=== PATIENT | male | born 1975 | race Caucasian/White ===

== ENCOUNTER 2022-08-09 10:57 | Emergency (ER) | payer OTHER ==
[2022-08-09 11:22] VITALS: BP 149/94; PULSE 93; RESP 18; TEMP 98.5; BMI 19.0
[2022-08-09] MEDS ORDERED: ALBUTEROL SO4 2.5/IPRATROPIUM 0.5 INH SOL 3 ML VIAL.NEB. NEB ONE (12:08)
== END 2022-08-09 14:45 | disposition home or self-care (01) ==
LOC: JER 10:57
PROC: 3E0F7GC Introduction of Other Therapeutic Substance into Respiratory Tract, Via Natural or Artificial Opening (ICD-10-PCS; principal; 2022-08-09)
DX: R05.1 Acute cough (principal)
CPT/HCPCS: 0241U-QW; 71046-TC-FY; 87651; 99284-25

== ENCOUNTER 2023-05-21 19:33 | Observation (INO) | payer OTHER ==
[2023-05-21 19:39] VITALS: BMI 18.6
[2023-05-21] MEDS ORDERED: DIPHTH,PERTUSS(ACELL),TET 0.5 ML DISP.SYRIN IM ONE ×2 (20:02→21:18)
[2023-05-21] MEDS ORDERED: ACETAMINOPHEN 1000 MG/100 ML BAG IVPB ONE (21:34)
[2023-05-21 21:42] LABS: POTASSIUM 3.4 mmol/L (3.5-5.1)
[2023-05-21] MEDS ORDERED: POTASSIUM CHLORIDE ORAL LIQUID 20 MEQ/15 ML PO ONE (21:42)
[2023-05-21 21:44] LABS: CALCIUM 8.5 mg/dL (8.5-10.1)
[2023-05-21 21:45] LABS: ALBUMIN 3.6 g/dl (3.4-5.0); BLOOD UREA NITROGEN 15.9 mg/dL (7-18)
[2023-05-21] MEDS ORDERED: BACITRACIN ZINC 15 GM TUBE TOPICAL OINTMENT TP ONE (21:46)
[2023-05-21 21:49] LABS: TOT PROT 6.6 g/dl (6.4-8.2)
[2023-05-21] MEDS ORDERED: ACETAMINOPHEN INJECTION 100 ML IVPB ONE (21:50)
[2023-05-21] MEDS ORDERED: POTASSIUM CHLORIDE ORAL LIQUID 20 MEQ/15 ML ONE (21:50)
[2023-05-21] MEDS ORDERED: BACITRACIN 0.9 GM PACKET ONE (21:50)
[2023-05-21 22:05] LABS: BASO % 1.2 % (0-2.0); EOS % 2.3 % (0-4.5); HEMATOCRIT 43.5 % (35.4-49); HEMOGLOBIN 15.5 GM/dL (11.7-16.9); LYMPH % 22.3 % (8-40); MCH 32.8 pg (25.7-33.7); MCHC 35.6 g/dl (32.0-35.9); MEAN CELL VOLUME 92.2 fl (80-96); MEAN PLT VOLUME 9.9 fl (7.5-11.1); MONO % 9.4 % (3.8-10.2); NEUT % 64.8 % (42.8-82.8); PLATELET COUNT 160 10^3/uL (134-434); RBC 4.71 M/mm3 (4.00-5.60); RDW 12.7 % (11.9-15.9); WHITE BLOOD COUNT 7.3 K/mm3 (4.0-10.0)
[2023-05-21] MEDS ORDERED: ACETAMINOPHEN 325 MG TABLET (FP) PO PRN (23:26)
[2023-05-21 23:52] LABS: MAGNESIUM 2.1 mg/dL (1.8-2.4)
[2023-05-21 23:56] LABS: PHOSPHOROUS 4.1 mg/dL (2.5-4.9)
[2023-05-22 00:33] LABS: PHENCYCLIDINE,URINE NEGATIVE (NEGATIVE); URINE BARBITURATES NEGATIVE (NEGATIVE)
[2023-05-22 00:35] LABS: URINE APPEARANCE Clear; URINE BILIRUBIN Negative (NEGATIVE); URINE COLOR Yellow; URINE GLUCOSE (UA) Negative (NEGATIVE); URINE KETONE Trace (NEGATIVE); URINE LEUK ESTERASE Negative (NEGATIVE); URINE NITRITE Negative (NEGATIVE); URINE PROTEIN 1+ (NEGATIVE)
[2023-05-22 00:43] LABS: COCAINE, UR NEGATIVE (NEGATIVE); METHADONE, UR NEGATIVE (NEGATIVE); OPIATES, URI NEGATIVE (NEGATIVE); URINE AMPHETAMINES NEGATIVE (NEGATIVE); URINE BENZODIAZEPINES NEGATIVE (NEGATIVE)
[2023-05-22 01:45] LABS: EPI CELLS 15.6 /uL (0-25.1); HYALINE CASTS 1.6 /uL (0-3.1); URINE BACTERIA 8.3 /uL (0-1359); URINE RBC 9.6 /uL (0-23.9); URINE WBC 40.1 /uL (0-25.8)
[2023-05-22 06:02] LABS: HEMATOCRIT 44.8 % (35.4-49); HEMOGLOBIN 15.5 GM/dL (11.7-16.9); MCH 32.1 pg (25.7-33.7); MCHC 34.6 g/dl (32.0-35.9); MEAN CELL VOLUME 92.8 fl (80-96); PLATELET COUNT 164 10^3/uL (134-434); RBC 4.83 M/mm3 (4.00-5.60); RDW 12.4 % (11.9-15.9); WHITE BLOOD COUNT 8.1 K/mm3 (4.0-10.0)
[2023-05-22 06:24] LABS: POTASSIUM 4.6 mmol/L (3.5-5.1)
[2023-05-22 06:26] LABS: MAGNESIUM 1.9 mg/dL (1.8-2.4)
[2023-05-22 06:27] LABS: ALBUMIN 3.6 g/dl (3.4-5.0); BLOOD UREA NITROGEN 14.7 mg/dL (7-18); CALCIUM 8.3 mg/dL (8.5-10.1)
[2023-05-22 06:30] LABS: CREATININE 0.8 mg/dL (0.55-1.3); PHOSPHOROUS 3.7 mg/dL (2.5-4.9)
[2023-05-22 06:31] LABS: TOT PROT 6.5 g/dl (6.4-8.2)
[2023-05-22 06:32] LABS: BILIRUBIN,TOTAL 1.8 mg/dL (0.2-1)
[2023-05-22] MEDS ORDERED: ENOXAPARIN NA (PORCINE) 40 MG/0.4 ML DISP.SYRIN SQ ONE (09:14)
[2023-05-22] MEDS: ENOXAPARIN NA (PORCINE) 40 MG/0.4 ML DISP.SYRIN SQ SCH (10:00)
[2023-05-22] MEDS ORDERED: ACETAMINOPHEN 325 MG TABLET (FP) ONE (10:01)
[2023-05-23 10:05] VITALS: PULSE 71
[2023-05-23] MEDS: ENOXAPARIN NA (PORCINE) 40 MG/0.4 ML DISP.SYRIN SQ SCH (10:26)
[2023-05-23 14:09] VITALS: BP 117/67; RESP 18; TEMP 97.8
== END 2023-05-23 16:10 | disposition home or self-care (01) ==
LOC: JER 19:33 → JERBED 23:07 → J4S 05-22 17:55
PROVIDERS: ADMIT Internal Medicine; ATTEND Internal Medicine
PROC: 3E033NZ Introduction of Analgesics, Hypnotics, Sedatives into Peripheral Vein, Percutaneous Approach (ICD-10-PCS; principal; 2023-05-21)
PROC: 3E0234Z Introduction of Serum, Toxoid and Vaccine into Muscle, Percutaneous Approach (ICD-10-PCS; 2023-05-21)
PROC: 3E023GC Introduction of Other Therapeutic Substance into Muscle, Percutaneous Approach (ICD-10-PCS; 2023-05-21)
PROC: 3E033NZ Introduction of Analgesics, Hypnotics, Sedatives into Peripheral Vein, Percutaneous Approach (ICD-10-PCS; 2023-05-21)
PROC: 3E0234Z Introduction of Serum, Toxoid and Vaccine into Muscle, Percutaneous Approach (ICD-10-PCS; 2023-05-21)
PROC: 3E023GC Introduction of Other Therapeutic Substance into Muscle, Percutaneous Approach (ICD-10-PCS; 2023-05-21)
DX: E87.6 Hypokalemia (principal); R55 Syncope and collapse; R00.1 Bradycardia, unspecified; R64 Cachexia; Z23 Encounter for immunization
CPT/HCPCS: 36415; 70450-TC; 70551-TC; 71045-TC-FY; 72125-TC; 80053; 80061; 80307; 81003; 82962; 83735; 84100; 84439; 84443; 84484; 85025; 85027; 87086; 87635; 90715; 93005; 93010; 93306-TC; 93880-TC; 99285-25; G0378